=== PATIENT | male | born 2005 | race Caucasian/White ===

== ENCOUNTER 2025-07-29 21:44 | Emergency (ER) | payer MEDICAID, OTHER ==
[~2025-07-29] VITALS: Ht 162.6 cm; Wt 78.0 kg
[2025-07-29 21:55] VITALS: BP 126/69
[2025-07-29] MEDS ORDERED: DICL100G61 TP (22:25)
[2025-07-29 22:39] VITALS: BP 122/67; O2SAT 99
[2025-08-22] MEDS ORDERED: OSEL75CA PO (21:58)
== END 2025-07-29 22:30 | disposition home or self-care (01) ==
LOC: ER 21:44
DX: S06.0X0A Concussion without loss of consciousness, initial encounter (principal); S30.0XXA Contusion of lower back and pelvis, initial encounter; S39.012A Strain of muscle, fascia and tendon of lower back, initial encounter; S80.01XA Contusion of right knee, initial encounter; S80.211A Abrasion, right knee, initial encounter; W22.01XA Walked into wall, initial encounter; Y93.89 Activity, other specified; Y92.89 Other specified places as the place of occurrence of the external cause; Y99.8 Other external cause status